=== PATIENT | male | born 1990 | race Caucasian/White ===

== ENCOUNTER 2017-07-01 14:31 | Emergency (ER) | payer MEDICAID ==
[2017-07-01 14:48] VITALS: BP 130/84
--- NOTE | 2017-07-01 15:06 | ED Physician Documentation ---
History of Present Illness - Stated complaint Stated Complaint: JAW PX/FATIGUE/EYE TWITCHING - Chief complaint Chief Complaint: General - History obtained from History obtained from: Patient - History of Present Illness Timing: Other (This is a 27-year-old gentleman who is previously healthy, moves around a lot does not have a primary care physician. Last summer he was working in a [email or web address] [place] in [place], did have tick bites. About a month after that start again diffuse joint aches which he attributed to a lifestyle of heavy athletic exercise, but lately he has been having a lot of issues with TMJ and wonders if he might have Lyme disease. There was never the characteristic rash.) Review of Systems Constitutional: reports: Fatigue. denies: Fever, Chills Throat: denies: Oral lesions / sores GI: denies: Nausea, Vomiting, Diarrhea PD PAST MEDICAL HISTORY - Present Medications Home Medications: Ambulatory Orders Medication Instructions Recorded Confirmed Doxycycline Hyclate 100 mg PO BID #56 tablet 07/01/17 - Allergies Allergies/Adverse Reactions: Allergies Allergy/AdvReac Type Severity Reaction Status Date / Time No Known Drug Allergies Allergy Verified 07/01/17 14:48 PD ED PE NORMAL - Vitals Vital signs reviewed: Yes - General General: Alert and oriented X 3, No acute distress - HEENT HEENT: PERRL, EOMI, Other (TMJs are tender, no tender teeth, good range of motion of the jaw.) - Neck Neck: Supple, no meningeal sign, No bony TTP - Cardiac Cardiac: RRR, No murmur - Respiratory Respiratory: No respiratory distress, Clear bilaterally - Abdomen Abdomen: Non tender - Derm Derm: No rash - Neuro Neuro: Alert and oriented X 3 Eye Opening: Spontaneous - Psych Psych: Normal mood, Normal affect Results - Vitals Vitals: Vital Signs - 24 hr 07/01/17 14:42 Temperature 36.7 C Heart Rate 55 L Respiratory 20 Rate Blood Pressure 130/84 H O2 Saturation 98 Oxygen O2 Source Room air PD MEDICAL DECISION MAKING - ED course ED course: Normally this would be an outpatient workup, he did go to an urgent care who referred him to the emergency department. He has poor access to local follow- ups, so we will start him on doxycycline for 4 weeks and run the test and he is encouraged to contact me next week for results. Departure - Departure Disposition: 01 Home, Self Care Clinical Impression: Myalgia, Polyarthralgia Condition: Good Record reviewed to determine appropriate education?: Yes Prescriptions: Doxycycline Hyclate 100 mg PO BID #56 tablet Comments: Call me next July 09 at noon or after at [phone] for results. Sooner if worse. Stay out of the sun while on antibiotics as discussed.
[2017-07-01 15:23] LABS: BASOPHILS # (AUTO) 0.1 10^3/uL (0.0-0.1); BASOPHILS % (AUTO) 0.4 %; EOSINOPHILS # (AUTO) 0.1 10^3/uL (0.0-0.7); EOSINOPHILS % (AUTO) 0.7 %; HGB - HEMOGLOBIN 14.4 g/dL (14.0-18.0); LYMPHOCYTES # (AUTO) 1.3 10^3/uL (1.5-3.5); LYMPHOCYTES % (AUTO) 11.1 %; MEAN CORPUSCULAR HEMOGLOBIN 30.8 pg (27.0-31.0); MEAN CORPUSCULAR HGB CONC 33.2 g/dL (32.0-36.0); MEAN CORPUSCULAR VOLUME 92.6 fL (80.0-94.0); MEAN PLATELET VOLUME 8.7 fL (7.4-11.4); MONOCYTES # (AUTO) 0.6 10^3/uL (0.0-1.0); MONOCYTES % (AUTO) 5.4 %; NEUTROPHILS # (AUTO) 9.7 10^3/uL (1.5-6.6); NEUTROPHILS % (AUTO) 82.4 %; PLT - PLATELET COUNT 221 10^3/uL (130-450); RED BLOOD COUNT 4.66 10^6/uL (4.70-6.10); WHITE BLOOD COUNT 11.8 x10^3/uL (4.8-10.8)
[2017-07-01 15:40] LABS: ALBUMIN 4.6 g/dL (3.2-5.5); ALBUMIN/GLOBULIN RATIO 1.5 (1.0-2.2); BILIRUBIN,TOTAL 0.7 mg/dL (0.2-1.0); CALCIUM 9.5 mg/dL (8.5-10.3); CREATININE 0.9 mg/dL (0.6-1.2); CRP - C-REACTIVE PROTEIN 1.2 mg/dL (0-1.0); TOTAL PROTEIN 7.6 g/dL (6.7-8.2)
[2017-07-04 21:06] LABS: 18 KD (IGG) BAND REACTIVE; 23 KD (IGG) BAND REACTIVE; 23 KD (IGM) BLOT NON-REACTIVE; 28 KD (IGG) BAND REACTIVE; 30 KD (IGG) BAND REACTIVE; 39 KD (IGG) BAND REACTIVE; 39 KD (IGM) BLOT NON-REACTIVE; 41 KD (IGG) BAND REACTIVE; 41 KD (IGM) BLOT REACTIVE; 45 KD (IGG) BAND REACTIVE; 58 KD (IGG) BAND REACTIVE; 66 KD (IGG) BAND REACTIVE; 93 KD (IGG) BAND REACTIVE
== END 2017-07-01 15:19 | disposition home or self-care (01) ==
LOC: ED 14:31
DX: M79.1 Myalgia (principal); M25.50 Pain in unspecified joint
CPT/HCPCS: 80053; 83690; 85025; 85651; 86140; 86617; 99283